=== PATIENT | female | born 1985 | race African-American/Black ===

== ENCOUNTER 2024-11-23 13:18 | Emergency (ER) | payer MEDICAID ==
[2024-11-23] MEDS ORDERED: Albuterol 6.7 GM Inhaler INH ONE (13:19)
[2024-11-23] MEDS ORDERED: Ibuprofen 400 MG Tab PO ONE (13:19)
[2024-11-23] MEDS: Albuterol/Ipratropium 3.0-0.5 MG/3 ML Neb Soln NEB ONE (13:22)
[2024-11-23] MEDS: Albuterol/Ipratropium 3.0-0.5 MG/3 ML Neb Soln ONE (13:29)
[2024-11-23] MEDS: methylPREDNISolone Sodium Succinate 125 MG/2 ML SDV IM ONE (13:34)
== END 2024-11-23 14:35 | disposition home or self-care (01) ==
LOC: FB.ED 13:18
DX: J45.901 Unspecified asthma with (acute) exacerbation (principal); M54.9 Dorsalgia, unspecified; Z79.51 Long term (current) use of inhaled steroids; Z79.899 Other long term (current) drug therapy; Z87.891 Personal history of nicotine dependence
CPT/HCPCS: 94640; 96372; 99284; A9270; J2919; J7620